=== PATIENT | female | born 1950 | race Hispanic/Latino ===

== ENCOUNTER 2017-10-14 09:51 | Inpatient (IN) | payer MEDICARE ==
[~2017-10-14] VITALS: Ht 162.6 cm; Wt 80.6 kg
[~2017-10-14 09:51] MED LIST: ASPI-1197 PO; CARV3.12 PO; ERGO400C PO; FERR325T22 PO; INSLAN SQ; LINA145C PO; LIRA0.6P SQ; LOSA50TA37 PO; OMEP20TA25 PO; PRAV40TA3 PO; SOLI10TA PO; TAMS0.4C32 PO; TYL3 PO
[2017-10-14 10:18] LABS: BASOPHILS % (AUTO) 0.5 % (0.0-5.0); EOSINOPHILS % (AUTO) 0.7 % (0.0-8.0); LYMPHOCYTES % (AUTO) 5.7 % (21.0-51.0); MEAN CORPUSCULAR HEMOGLOBIN 31.4 pg (27.0-33.0); MEAN CORPUSCULAR HGB CONC 33.6 g/dL (32.0-36.0); MEAN CORPUSCULAR VOLUME 93.3 fL (79-99); MONOCYTES % (AUTO) 9.8 % (3.0-13.0); NEUTROPHILS % (AUTO) 83.3 % (40.0-77.0); PLATELET COUNT (AUTO) 275 K/uL (130-400); RED BLOOD CELL COUNT(AUTO) 3.53 MIL/uL (4.00-5.50); RED CELL DISTRIBUTION WIDTH 13.4 % (11.0-15.5); WHITE BLOOD COUNT (AUTO) 17.5 K/uL (4.8-10.8)
[2017-10-14] MEDS ORDERED: CEFTRIAXONE SODIUM 1 GM ONE ×2 (10:21→10:37)
[2017-10-14] MEDS ORDERED: ACETAMINOPHEN EXTRA STRENGTH 500 MG TABLET ONE (10:21)
[2017-10-14] MEDS ORDERED: SODIUM CHLORIDE 0.9% 1000ML 2,000 ML IV ONE (10:21)
[2017-10-14 10:25] LABS: CARBON DIOXIDE 27 mmol/L (21-32); CHLORIDE 105 mmol/L (101-111); CREATININE 1.8 mg/dL (0.5-1.5); GLOMERULAR FILTR. RATE CALC 30 mL/min (>60); GLUCOSE,RANDOM 193 mg/dL (70-105); SODIUM SERUM 138 mmol/L (136-145); UREA NITROGEN, BLOOD 25 mg/dL (7-18)
[2017-10-14 10:41] LABS: ALANINE AMINOTRANSFERASE 24 U/L (12-78); ALBUMIN 3.4 g/dL (3.5-5.0); ASPARTATE AMINOTRANSFERASE 26 U/L (10-37); BILIRUBIN,TOTAL 0.4 mg/dL (0.2-1.0); CREATINE KINASE MB 0.5 ng/mL (0.5-3.6); CREATINE KINASE, TOTAL 224 U/L (21-232); MYOGLOBIN 126 ng/mL (10-92); TOTAL PROTEIN, SERUM 8.3 g/dL (6.0-8.3); TROPONIN I < 0.04 ng/mL (0.00-0.06)
[2017-10-14 10:42] LABS: APPEARANCE,URINE Turbid (CLEAR); BILIRUBIN,URINE Negative (NEGATIVE); COLOR,URINE Yellow (YELLOW); GLUCOSE, URINE (UA) TRACE mg/dL (NEGATIVE); KETONES,URINE Negative (NEGATIVE); LEUKOCYTE ESTERASE ,URINE Large (NEGATIVE); NITRATE,URINE Negative (NEGATIVE); OCCULT BLOOD,URINE Small (NEGATIVE); PROTEIN,URINE POS 2+ (NEGATIVE); UROBILINOGEN,URINE 0.2 mg/dL (0.2-1.0)
[2017-10-14 10:42] LABS: INR 0.97 (0.85-1.15); PROTHROMBIN TIME 10.2 SEC (9.6-11.6)
[2017-10-14 10:53] LABS: BACTERIA,URINE Many /HPF (None Seen); SQUAMOUS EPITHELIAL CELL,UR Rare /HPF (0-2); WBC,URINE TNTC /HPF (0-1)
[2017-10-14] MEDS ORDERED: MORPHINE SULFATE 4 MG/1ML SYG ONE (17:18)
[2017-10-14] MEDS ORDERED: ACETAMINOPHEN 325 MG TAB ONE (18:59)
[2017-10-15] MEDS ORDERED: HYDRALAZINE HCL 20 MG/ML VIAL IV PRN
[2017-10-15] MEDS ORDERED: NON-FORMULARY MEDICATION 1 EACH (Omeprazole 20 MG) PO PRN
[2017-10-15] MEDS ORDERED: ACETAMINOPHEN-CODEINE 300/30MG TAB PO PRN
[2017-10-15] MEDS: ZOSYN 3.375GM+NS 50ML 50 ML IV SCH ×3 (01:00→18:04)
[2017-10-15] MEDS ORDERED: SODIUM CHLORIDE 0.9% 1000ML 1,000 ML IV ONE (01:15)
[2017-10-15] MEDS ORDERED: ZOSYN 3.375GM+NS 50ML 50 ML IV ONE ×2 (01:15→09:42)
[2017-10-15] MEDS ORDERED: HEPARIN SODIUM 5000UNIT/ML 1ML VIAL ONE ×2 (01:15→08:57)
[2017-10-15] MEDS ORDERED: ACETAMINOPHEN EXTRA STRENGTH 500 MG TABLET ONE (01:43)
[2017-10-15 05:37] LABS: HEMATOCRIT 29.2 % (36-48); MEAN CORPUSCULAR HEMOGLOBIN 31.6 pg (27.0-33.0); MEAN CORPUSCULAR HGB CONC 33.7 g/dL (32.0-36.0); MEAN CORPUSCULAR VOLUME 93.7 fL (79-99); NUCLEATED RED BLOOD CELLS 3.4 % (0.0-0.19); PLATELET COUNT (AUTO) 246 K/uL (130-400); RED BLOOD CELL COUNT(AUTO) 3.11 MIL/uL (4.00-5.50); RED CELL DISTRIBUTION WIDTH 13.7 % (11.0-15.5); WHITE BLOOD COUNT (AUTO) 8.9 K/uL (4.8-10.8)
[2017-10-15 05:59] LABS: CREATININE 1.7 mg/dL (0.5-1.5); MAGNESIUM 1.6 mg/dL (1.80-2.40); POTASSIUM 3.4 mmol/L (3.5-5.1); THYROID STIMULATING HORMONE 0.85 uIU/mL (0.36-3.74)
[2017-10-15] MEDS: INSULIN HUMULIN R 100 UNIT/ML 3ML SQ SCH ×5 (07:30→21:04)
[2017-10-15] MEDS ORDERED: ERGO500014 PO (08:53)
[2017-10-15] MEDS ORDERED: LOSA50TA37 PO (08:53)
[2017-10-15] MEDS ORDERED: ATOR40TA71 PO (08:53)
[2017-10-15] MEDS ORDERED: CARV6.25 PO (08:53)
[2017-10-15] MEDS ORDERED: ASPIRIN 81MG TAB.CHEW ONE (08:56)
[2017-10-15] MEDS ORDERED: CARVEDILOL 3.125 MG TABLET PO ONE (08:57)
[2017-10-15] MEDS: FERROUS SULFATE 325 MG TABLET.DR PO SCH (09:00)
[2017-10-15] MEDS ORDERED: OMEPRAZOLE 20 MG PO SCH (09:00)
[2017-10-15] MEDS: ASPIRIN 81MG TAB.CHEW PO SCH (09:00)
[2017-10-15] MEDS: ***HM***Linaclotide (Linzess) 145 MCG PO SCH (09:00)
[2017-10-15] MEDS: CARVEDILOL 3.125 MG TABLET PO SCH (09:00)
[2017-10-15] MEDS: HEPARIN SODIUM 5000UNIT/ML 1ML VIAL SQ SCH ×3 (09:00→20:41)
[2017-10-15] MEDS: SODIUM CHLORIDE 0.9% 1000ML 1,000 ML IV SCH ×2 (10:00)
[2017-10-15 11:28] LABS: CREATINE KINASE MB 1.1 ng/mL (0.5-3.6); CREATINE KINASE, TOTAL 267 U/L (21-232); MYOGLOBIN 141 ng/mL (10-92); TROPONIN I < 0.04 ng/mL (0.00-0.06)
[2017-10-15 16:20] VITALS: BP 126/47
[2017-10-15 19:00] VITALS: BP 148/65
[2017-10-15] MEDS ORDERED: POTASSIUM CHLORIDE 20MEQ/100ML 100 ML IV PRN (19:15)
[2017-10-15] MEDS ORDERED: LIDOCAINE HCL-MPF 1% 2ML VIAL IVP PRN (19:15)
[2017-10-15] MEDS ORDERED: MAGNESIUM 2GM PREMIX 50ML 50 ML IV SCH (19:15)
[2017-10-15] MEDS ORDERED: POTASSIUM CHLORIDE 20 MEQ ERTAB PO PRN (19:15)
[2017-10-15] MEDS ORDERED: POTASSIUM CHLORIDE 10% ELIXIR 20 MEQ/15 ML UDCUP PO PRN (19:15)
[2017-10-15 19:59] LABS: CREATINE KINASE MB 0.9 ng/mL (0.5-3.6); CREATINE KINASE, TOTAL 268 U/L (21-232); MYOGLOBIN 131 ng/mL (10-92); TROPONIN I < 0.04 ng/mL (0.00-0.06)
[2017-10-15] MEDS ORDERED: POTASSIUM CHLORIDE 20 MEQ ERTAB PO ONE (20:30)
[2017-10-15] MEDS ORDERED: MAGNESIUM 2GM PREMIX 50ML 50 ML IV ONE (20:31)
[2017-10-15] MEDS: TAMSULOSIN HCL 0.4 MG CAP.ER.24H PO SCH (20:42)
[2017-10-15] MEDS: ***HM***Pravastatin Sodium 40 MG PO SCH (20:46)
[2017-10-15] MEDS: SOLIFENACIN SUCCINATE 10 MG PO SCH (20:47)
[2017-10-15 23:00] VITALS: BP 136/65
[2017-10-16] MEDS: PHENAZOPYRIDINE HCL 200 MG TABLET PO SCH ×4 (00:01→21:00)
[2017-10-16] MEDS: ZOSYN 3.375GM+NS 50ML 50 ML IV SCH ×3 (01:22→17:54)
[2017-10-16 03:00] VITALS: BP 130/63
[2017-10-16 05:01] LABS: MEAN CORPUSCULAR HEMOGLOBIN 31.7 pg (27.0-33.0); MEAN CORPUSCULAR HGB CONC 34.4 g/dL (32.0-36.0); MEAN CORPUSCULAR VOLUME 92.1 fL (79-99); PLATELET COUNT (AUTO) 232 K/uL (130-400); RED BLOOD CELL COUNT(AUTO) 3.14 MIL/uL (4.00-5.50); RED CELL DISTRIBUTION WIDTH 13.4 % (11.0-15.5); WHITE BLOOD COUNT (AUTO) 8.1 K/uL (4.8-10.8)
[2017-10-16 05:19] LABS: CREATININE 1.8 mg/dL (0.5-1.5)
[2017-10-16] MEDS: INSULIN HUMULIN R 100 UNIT/ML 3ML SQ SCH ×6 (05:38→20:59)
[2017-10-16 05:47] LABS: CREATINE KINASE MB 0.6 ng/mL (0.5-3.6); CREATINE KINASE, TOTAL 242 U/L (21-232); MYOGLOBIN 107 ng/mL (10-92); TROPONIN I < 0.04 ng/mL (0.00-0.06)
[2017-10-16] MEDS: PANTOPRAZOLE SODIUM 40 MG TABLET.DR PO SCH (06:51)
[2017-10-16 08:00] VITALS: BP 108/57
[2017-10-16] MEDS: SODIUM CHLORIDE 0.9% 1000ML 1,000 ML IV SCH ×2 (08:25→14:48)
[2017-10-16] MEDS ORDERED: PANTOPRAZOLE 40 MG/VIAL IVP SCH (09:00)
[2017-10-16] MEDS: ***HM***Linaclotide (Linzess) 145 MCG PO SCH (09:00)
[2017-10-16] MEDS: FERROUS SULFATE 325 MG TABLET.DR PO SCH (09:43)
[2017-10-16] MEDS: ASPIRIN 81MG TAB.CHEW PO SCH (09:43)
[2017-10-16] MEDS: CARVEDILOL 3.125 MG TABLET PO SCH (09:45)
[2017-10-16] MEDS: HEPARIN SODIUM 5000UNIT/ML 1ML VIAL SQ SCH ×2 (09:51→20:58)
[2017-10-16 11:00] VITALS: BP 125/62
[2017-10-16 16:00] VITALS: BP 130/63
[2017-10-16] MEDS: DOCUSATE SODIUM 100 MG CAP PO SCH ×2 (17:53→21:00)
[2017-10-16 19:25] VITALS: BP 128/60
[2017-10-16] MEDS: ***HM***Pravastatin Sodium 40 MG PO SCH (21:00)
[2017-10-16] MEDS: TAMSULOSIN HCL 0.4 MG CAP.ER.24H PO SCH (21:00)
[2017-10-16] MEDS: SOLIFENACIN SUCCINATE 10 MG PO SCH (21:00)
[2017-10-17 00:15] VITALS: BP 145/67
[2017-10-17] MEDS: ZOSYN 3.375GM+NS 50ML 50 ML IV SCH ×2 (01:17→08:53)
[2017-10-17] MEDS: SODIUM CHLORIDE 0.9% 1000ML 1,000 ML IV SCH ×2 (02:00→08:47)
[2017-10-17 04:00] VITALS: BP 174/76
[2017-10-17] MEDS: INSULIN HUMULIN R 100 UNIT/ML 3ML SQ SCH ×2 (06:48→12:18)
[2017-10-17 08:00] VITALS: BP 178/75
[2017-10-17] MEDS: PANTOPRAZOLE SODIUM 40 MG TABLET.DR PO SCH (08:48)
[2017-10-17] MEDS: ASPIRIN 81MG TAB.CHEW PO SCH (08:48)
[2017-10-17] MEDS: CARVEDILOL 3.125 MG TABLET PO SCH (08:49)
[2017-10-17] MEDS: FERROUS SULFATE 325 MG TABLET.DR PO SCH (08:49)
[2017-10-17] MEDS: ***HM***Linaclotide (Linzess) 145 MCG PO SCH (08:50)
[2017-10-17] MEDS: PHENAZOPYRIDINE HCL 200 MG TABLET PO SCH ×2 (08:50→14:08)
[2017-10-17] MEDS: DOCUSATE SODIUM 100 MG CAP PO SCH (08:50)
[2017-10-17] MEDS: HEPARIN SODIUM 5000UNIT/ML 1ML VIAL SQ SCH (09:01)
[2017-10-17 11:21] VITALS: BP 147/73
[2017-10-17 12:20] LABS: CREATININE 1.7 mg/dL (0.5-1.5); POTASSIUM 4.4 mmol/L (3.5-5.1)
[2017-10-17 16:00] VITALS: BP 129/72
[2017-10-17] MEDS ORDERED: CARVEDILOL 6.25 MG TABLET PO SCH (21:00)
[2017-10-17] MEDS ORDERED: ATORVASTATIN CALCIUM 40 MG TABLET PO SCH (21:00)
[2017-10-18] MEDS ORDERED: LOSARTAN 50 MG TABLET PO SCH (09:00)
[2017-10-21] MEDS ORDERED: ERGOCALCIFEROL (VITAMIN D2) 50,000 UNIT CAPSULE PO SCH (09:00)
[2017-10-24] MEDS ORDERED: ERGOCALCIFEROL (VITAMIN D2) 50,000 UNIT CAPSULE PO SCH (09:00)
== END 2017-10-17 18:53 | disposition home or self-care (01) | DRG 690 ==
LOC: EDH 09:51 → EDHIP 14:09 → OBSVTOIN 14:09 → 3CH 10-15 14:49
PROVIDERS: ADMIT Internal Medicine Critical Care Medicine; ATTEND Internal Medicine Critical Care Medicine
DX: N39.0 Urinary tract infection, site not specified (principal); N28.9 Disorder of kidney and ureter, unspecified; E11.36 Type 2 diabetes mellitus with diabetic cataract; I10 Essential (primary) hypertension; E78.5 Hyperlipidemia, unspecified; Z16.12 Extended spectrum beta lactamase (ESBL) resistance; R32 Unspecified urinary incontinence; H54.61 Unqualified visual loss, right eye, normal vision left eye; E87.8 Other disorders of electrolyte and fluid balance, not elsewhere classified; Z90.710 Acquired absence of both cervix and uterus; Z86.010 Personal history of colon polyps; Z98.51 Tubal ligation status
CPT/HCPCS: 36415; 71045; 80048; 80053; 81001; 82550; 82553; 82948; 83605; 83735; 83874; 84100; 84443; 84484; 85025; 85027; 85610; 85730; 87040; 87088; 87186; 93005; A4344; C9113; J0696; J1644; J1815; J2270; J2543; J3475; J7030

== ENCOUNTER → 2018-03-31 | Outpatient (CLI) | payer OTHER, MEDICARE ==
[~2018-03-31] MED LIST changes: +ATOR40TA71 PO; +CARV6.25 PO; +ERGO500014 PO; -INSLAN SQ; -LIRA0.6P SQ; +LOSA50TA25 PO; -LOSA50TA37 PO
== END | disposition home or self-care (01) ==
LOC: RAH 09:54
PROVIDERS: ATTEND Family Medicine
DX: Z12.31 Encounter for screening mammogram for malignant neoplasm of breast (principal)
CPT/HCPCS: 77067

== ENCOUNTER → 2018-08-13 | Outpatient (CLI) | payer OTHER, MEDICARE ==
[~2018-08-13] MED LIST changes: -LOSA50TA25 PO; +LOSA50TA64 PO
== END | disposition home or self-care (01) ==
LOC: RAH 11:04
PROVIDERS: ATTEND Family Medicine
DX: E04.2 Nontoxic multinodular goiter (principal); R22.1 Localized swelling, mass and lump, neck
CPT/HCPCS: 76536

== ENCOUNTER → 2020-02-08 | Outpatient (CLI) | payer OTHER, MEDICARE | END | disposition home or self-care (01) | LOC: RAH 10:31 | PROVIDERS: ATTEND Family Medicine | DX: Z12.31 Encounter for screening mammogram for malignant neoplasm of breast (principal) | CPT/HCPCS: 77067 ==